=== PATIENT | female | born 1985 | race Caucasian/White ===

== ENCOUNTER 2025-02-18 19:50 | Emergency (ER) | payer OTHER ==
[~2025-02-18] VITALS: Ht 170.2 cm; Wt 78.9 kg
[2025-02-18 21:09] VITALS: BP 131/70; TEMP 98.4; O2SAT 98
[2025-02-18] MEDS ORDERED: EPIN0.3P3 IM (21:33)
[2025-02-18] MEDS ORDERED: PRED50TA PO (21:33)
== END 2025-02-18 21:37 | disposition home or self-care (01) ==
LOC: ER 19:50
DX: T78.40XA Allergy, unspecified, initial encounter (principal); Z79.52 Long term (current) use of systemic steroids; Z79.899 Other long term (current) drug therapy; Z60.2 Problems related to living alone; X58.XXXA Exposure to other specified factors, initial encounter

== ENCOUNTER 2025-02-24 10:31 | Emergency (ER) | payer OTHER ==
[~2025-02-24] VITALS: Ht 172.7 cm; Wt 99.8 kg
[~2025-02-24 10:31] MED LIST: EPIN0.3P3 IM; PRED50TA PO
[2025-02-24 10:49] VITALS: BP 152/95; TEMP 98.4
[2025-02-24 10:50] VITALS: O2SAT 98
[2025-02-24] MEDS ORDERED: ACYC-108 PO (11:55)
[2025-02-24] MEDS ORDERED: DOXY-326 PO (11:55)
== END 2025-02-24 12:44 | disposition home or self-care (01) ==
LOC: ER 10:38
DX: A60.09 Herpesviral infection of other urogenital tract (principal); A74.9 Chlamydial infection, unspecified; Z60.2 Problems related to living alone; Z79.52 Long term (current) use of systemic steroids